=== PATIENT | female | born 1955 | race Caucasian/White ===

== ENCOUNTER 2023-05-29 19:10 | Emergency (ER) | payer MEDICARE, OTHER, SELFPAY ==
[2023-05-29 19:17] VITALS: BP 170/98
[2023-05-29 19:23] VITALS: BMI 33.3
[2023-05-29 20:00] VITALS: BP 144/88; BP 149/96
--- NOTE | 2023-05-29 22:10 | ED.GENMED ---
History of Present Illness
General
Chief Complaint: Breathing Problem
Source: patient
Exam Limitations: clinical condition
Time Seen by Provider: 05/29/23 21:53
Nursing documentation reviewed up to this point in time: agreed with
Travel History
Have you had any contact with someone who has COVID-19?: No
Do you have any symptoms of coronavirus? Fever > 100 degrees, chills, cough, shortness of breath, sore throat, loss of taste or smell, muscle aches, or headache?: No
History of Present Illness
History of Present Illness:
This is a 67 year old female that presents with generalized fatigue and nausea. Pt states that this began around 4pm tonight. She states that she usually takes Phenergan for her nausea. She reports that she is allergic to all other antiemetics.
Patient is on hospice, and she is accompanied by hospice nurse. Patient is on hospice for cardiac issues. She is under the care of [facility]. History is limited at this time as patient does not wish to answer questions.
Past History
Past History
ED Past Medical History: CHF, COPD, HTN, IDDM, NIDDM, Psychiatric (Depression) and Other (DVT/PE, Rheumatoid arthritis, fibromyalgia, colon polyps)
ED Past Surgical History: Cholecystectomy and Orthopedic
Social History
Tobacco: Former smoker
Alcohol: None
Drug: None
Personal: Single
Living: alone
Employment: Not employed
Phy Exam
General Physical Exam
General Presentation: well appearing and no apparent distress
General Skin: warm and dry
General Habitus: normal
General Mental: alert
General Hydration: appears well hydrated
ENT Exam
ENT Exam: EOMI, pharynx normal, neck supple and normocephalic
Eye Exam
Eye Exam: PERRL, cornea clear and conjunctiva normal
Cardiovascular Exam
Cardiovascular Exam: regular rate/rhythm, no edema, no murmur and normal peripheral pulses
Pulmonary Exam
Pulmonary Exam: lungs clear, no respiratory distress, no rales, no crackles, no rhonchi, no stridor, no wheezing and no cough
Gastrointestinal Exam
Gastrointestinal Exam: normal bowel sounds, non tender, soft, no organomegaly, no pulsatile mass and non distended
Neurological Exam
Neurological Exam: alert, oriented x3, no motor deficits and speech normal
Musculoskeletal Exam
Musculoskeletal Exam: full ROM and no edema
Skin Exam
Skin Exam: normal color, warm/dry, no rash and no petechia
Psychiatric Exam
Psychiatric Exam: normal mood/affect
Scores
Heart Failure Risk
Heart Failure Risk Score: Not Applicable
Course
Orders/Labs/Results
Orders:
Orders
05/29/23 19:23
EKG [Electrocardiogram (*1)] Urgent
Reason for Study: Other
Other Reason for Exam: multiple complaints
EKG- Treatment ONCE
05/29/23 22:40
Complete Blood Count/With Diff Urgent
Comprehensive Metabolic Panel Urgent
05/29/23 22:52
Promethazine [Phenergan] 25 mg 0.9% Sodium Chloride 50 ml [Nss] 50 ml IV NOW
05/30/23 02:04
Lorazepam [Ativan] 0.5 mg IV NOW STA
Abnormal Lab Results
05/29/23 05/29/23
22:35 22:40
WBC 13.3 H 10^3/uL
(4.8-10.8)
RBC 5.64 H 10^6/uL
(4.20-5.40)
Hgb 17.6 H g/dL
(12.0-16.0)
Hct 48.3 H %
(37.0-47.0)
MCH 31.2 H pg
(27.0-31.0)
Abs Immat Gran (auto) 0.1 H 10^3/uL
(0-0.05)
Absolute Neuts (auto) 9.6 H 10^3/uL
(1.4-6.5)
Absolute Monos (auto) 1.1 H 10^3/uL
(0.1-0.6)
Lymphocytes % 18.2 L %
(20.5-51.1)
Potassium 3.4 L mmol/L
(3.5-5.1)
Carbon Dioxide 18 L mmol/L
(22-30)
BUN 6 L mg/dl
(7-17)
Creatinine 0.4 L mg/dL
(0.6-1.0)
Glucose 175 H mg/dl
(70-99)
Total Bilirubin 1.4 H mg/dl
(0.2-1.3)
Alkaline Phosphatase 178 H U/L
(38-126)
POC Glucose 169 H mg/dl
(70-99)
05/29/23 22:40
05/29/23 22:40
Vital Signs
Initial and Last Documented VS:
Initial Vital Signs
Temp Pulse Resp Pulse Ox
97.6 F 111 16 97
05/29/23 19:16 05/29/23 19:16 05/29/23 19:16 05/29/23 19:16
Last Documented Vital Signs
Temp Pulse Resp BP Pulse Ox
97.6 F 94 16 156/82 96
05/29/23 19:16 05/29/23 22:24 05/29/23 22:24 05/29/23 22:24 05/29/23 22:24
*Pulse Oximetry
Patient hypoxic: no
*EKG
Interpreted by ED Provider?: Yes
EKG Intrepretation Date: 05/29/23
Interpretation: abnormal
Comparison EKG: no changes
Heart Rate: 106
Rate: tachycardiac
Rhythm: sinus
[place]: normal axis
Interval: long QT
QRS Pattern: wide non-specific
Ischemia: no ischemia
*Apartment Maintenance Technician Interpretation
Rate: normal
Heart Rate: 88
*Critical Care Note
Total Time (30-74mins, 75-104mins- exclusive of procedures): Not Applicable
ED Attending Note
-
Portions of this chart may have been created with voice recognition software.� Occasional wrong word or��sound alike� substitutions may have occurred due to the inherent limitations of voice recognition software.
Discharge Plan
Departure
Patient Disposition: Home (Routine Discharge)
Date of Disposition: 05/30/23
Time of Disposition: 03:40
Patient with high blood pressure during this ER visit?: Yes
Condition: Fair
Discharge Problem:
Nausea & vomiting
Instructions: Nausea and Vomiting, Adult
Prescriptions:
New
promethazine 25 mg suppository
25 mg W[place] Q6H PRN (Reason: nausea and vomiting) Qty: 12 0RF
No Action
pantoprazole 40 MG tablet,delayed release (DR/EC)
40 mg PO DAILY
gabapentin 300 MG capsule
600 mg PO BID@0800,1400
duloxetine 60 MG capsule,delayed release(DR/EC)
60 mg PO HS
Eliquis 5 MG tablet
5 mg PO BID
dicyclomine 20 MG tablet
20 mg PO ACHS
metoprolol succinate 100 MG tablet extended release 24 hr
100 mg PO DAILY
oxycodone 10 MG tablet
10 mg PO Q6
Patient Comments:
11/06/2022: last filled 11/01/22, 28 tabs for 7 days from [facility]
cholecalciferol (vitamin D3) [Vitamin D3] 125 mcg (5,000 unit) Tablet
125 mcg PO DAILY
fluticasone propion-salmeterol [Advair HFA] 115-21 mcg/actuation Hfa Aerosol Inhaler
2 puff INHALATION R BID
amitriptyline 25 MG tablet
25 mg PO HS
insulin degludec [Tresiba FlexTouch U-100] 100 UNIT/ML insulin pen
70 unit SC DAILY
Rx Instructions:
see instructions on discharge
methocarbamol 500 mg tablet
1,000 mg PO TID
prednisone 5 mg tablet
5 mg PO BID
gabapentin 300 mg capsule
900 mg PO HS
albuterol sulfate 90 mcg/actuation Hfa Aerosol Inhaler
2 puff INHALATION R Q6 PRN (Reason: SOB/WHEEZING)
rosuvastatin 40 mg tablet
40 mg PO HS
Creon 36,000-114,000- 180,000 unit capsule,delayed release(DR/EC)
2 cap PO MEALS
Creon 36,000-114,000- 180,000 unit capsule,delayed release(DR/EC)
1 cap PO BID PRN (Reason: SNACK)
Jardiance 25 mg tablet
25 mg PO DAILY
Combivent Respimat 20-100 mcg/actuation mist
1 puff INHALATION R BID
Nurtec ODT 75 mg tablet,disintegrating
75 mg PO DAILY PRN (Reason: MIGRAINE)
Ozempic 1 mg/dose (4 mg/3 mL) pen injector
1 mg SC TH
diltiazem HCl 120 mg capsule,extended release 24hr
120 mg PO HS
insulin aspart U-100 [Novolog FlexPen U-100 Insulin] 300 UNITS/3 ML insulin pen
15 - 20 unit SC AC
Rx Instructions:
please see instructions on discharge
potassium chloride 10 mEq tablet extended release
10 meq PO DAILY 5 Days Qty: 5 0RF
Referrals:
Jorge aSnchez MD [Family Provider] -
Interventions
Interventions:
*Risk Screen - Suicide Last Done: 05/29/23 19:16
*General Assessment Last Done: 05/29/23 19:16
*Neglect/Abuse Screening Last Done: 05/29/23 19:16
ED- Fall Risk Assessment Last Done: 05/29/23 19:23
*ED COVID-19 Vaccine History Last Done: 05/29/23 19:23
*Nursing Disposition Last Done: 05/30/23 03:50
ED- Cardiac Assessment Last Done: 05/29/23 19:23
ED- Pulmonary Assessment Last Done: 05/29/23 19:23
Discharge Date and Time
Discharge Date/Time: 05/30/23 04:08
[2023-05-29 22:24] VITALS: BP 156/82
[2023-05-29 22:36] LABS: Glucose - Point of Care 169 mg/dl (70-99)
[2023-05-29 22:47] LABS: % Basophils 0.7 % (0-2); % Eosinophils 0.7 % (0-6); % Immature Granulocytes 0.4 % (0-0.5); % Lymphocytes 18.2 % (20.5-51.1); % Monocytes 7.9 % (1.7-9.3); % Neutrophils 72.1 % (42.2-75.2); Absolute Basophils 0.1 10^3/uL (0-0.2); Absolute Eosinophils 0.1 10^3/uL (0-0.7); Absolute Immature Granulocytes 0.1 10^3/uL (0-0.05); Absolute Lymphocytes 2.4 10^3/uL (1.2-3.4); Absolute Monocytes 1.1 10^3/uL (0.1-0.6); Absolute Neutrophils 9.6 10^3/uL (1.4-6.5); Hematocrit 48.3 % (37.0-47.0); Hemoglobin 17.6 g/dL (12.0-16.0); Mean Corp Hgb Conc. 36.4 g/dL (33.0-37.0); Mean Corpuscular Hgb 31.2 pg (27.0-31.0); Mean Corpuscular Volume 85.6 fL (81.0-99.0); Mean Platelet Volume 9.2 fL (7.4-10.4); Nucleated Red Blood Cells % 0 %; Platelet Count 354 10^3/uL (130-400); Red Blood Cell Count 5.64 10^6/uL (4.20-5.40); Red Cell Dist. Width 12.7 % (11.5-14.5); White Blood Cell Count 13.3 10^3/uL (4.8-10.8)
[2023-05-29] MEDS: PHENERGAN 51 MG IV (23:03)
[2023-05-29 23:04] LABS: ALT (SGPT) 25 U/L (0-35); AST (SGOT) 31 U/L (14-36); Albumin 4.2 g/dl (3.5-5.0); Alkaline Phosphatase 178 U/L (38-126); Blood Urea Nitrogen 6 mg/dl (7-17); Calcium 9.5 mg/dl (8.4-10.2); Carbon Dioxide 18 mmol/L (22-30); Estimated Creatinine Clearance 93 ml/min; Glucose 175 mg/dl (70-99); Total Bilirubin 1.4 mg/dl (0.2-1.3); Total Protein 7.7 g/dl (6.3-8.2); eGFR > 60.00
[2023-05-29 23:20] LABS: Chloride 106 mmol/L (98-107); Potassium 3.4 mmol/L (3.5-5.1); Sodium 136 mmol/L (135-145)
--- NOTE | 2023-05-29 23:26 | EDRN ---
Pt under the care of [facility] service.
Point of contact: Kasia Weiss RN (RN on-call)
telephone
[2023-05-30] MEDS: ATIVAN 0.5 MG IV (02:19)
== END 2023-05-30 04:08 | disposition home or self-care (01) ==
LOC: EMR 19:10
PROVIDERS: EMERGENCY PHYSICIAN Student in an Organized Health Care Education/Training Program; FAMILY PHYSICIAN Internal Medicine
DX: R11.2 Nausea with vomiting, unspecified (principal); I11.0 Hypertensive heart disease with heart failure; I50.9 Heart failure, unspecified; F32.A Depression, unspecified; J44.9 Chronic obstructive pulmonary disease, unspecified; M06.9 Rheumatoid arthritis, unspecified; M79.7 Fibromyalgia; E11.9 Type 2 diabetes mellitus without complications; Z51.5 Encounter for palliative care; Z86.718 Personal history of other venous thrombosis and embolism; Z87.19 Personal history of other diseases of the digestive system; Z87.891 Personal history of nicotine dependence; Z90.49 Acquired absence of other specified parts of digestive tract
CPT/HCPCS: 99284; 96374; 80053; 82962; 85025; 93005

== ENCOUNTER 2023-08-03 14:56 | Emergency (ER) | payer MEDICARE, OTHER, SELFPAY ==
[2023-08-03 15:17] VITALS: BP 188/106
[2023-08-03 15:42] VITALS: BMI 35.9
[2023-08-03 16:15] LABS: Glucose - Point of Care 128 mg/dl (70-99)
[2023-08-03] MEDS: NSS 1000 IV (16:59)
[2023-08-03 17:00] VITALS: BP 168/87
[2023-08-03] MEDS: ATIVAN 0.5 MG IV (17:03)
[2023-08-03] MEDS: LOPRESSOR 5 MG IV (17:03)
[2023-08-03 17:31] LABS: % Basophils 0.7 % (0-2); % Eosinophils 1.6 % (0-6); % Immature Granulocytes 0.4 % (0-0.5); % Lymphocytes 16.2 % (20.5-51.1); % Monocytes 6.5 % (1.7-9.3); % Neutrophils 74.6 % (42.2-75.2); Absolute Basophils 0.1 10^3/uL (0-0.2); Absolute Eosinophils 0.2 10^3/uL (0-0.7); Absolute Immature Granulocytes 0.1 10^3/uL (0-0.05); Absolute Lymphocytes 2.2 10^3/uL (1.2-3.4); Absolute Monocytes 0.9 10^3/uL (0.1-0.6); Absolute Neutrophils 10.1 10^3/uL (1.4-6.5); Hematocrit 50.1 % (37.0-47.0); Mean Corp Hgb Conc. 35.9 g/dL (33.0-37.0); Mean Corpuscular Hgb 31.3 pg (27.0-31.0); Mean Platelet Volume 9.3 fL (7.4-10.4); Nucleated Red Blood Cells % 0 %; Platelet Count 306 10^3/uL (130-400); Red Blood Cell Count 5.76 10^6/uL (4.20-5.40); Red Cell Dist. Width 12.8 % (11.5-14.5); White Blood Cell Count 13.6 10^3/uL (4.8-10.8)
[2023-08-03] MEDS: COMPAZINE 10 MG IV (17:41)
[2023-08-03 17:45] LABS: ALT (SGPT) 25 U/L (0-35); AST (SGOT) 30 U/L (14-36); Albumin 4.4 g/dl (3.5-5.0); Alkaline Phosphatase 158 U/L (38-126); Blood Urea Nitrogen 10 mg/dl (7-17); Calcium 9.7 mg/dl (8.4-10.2); Carbon Dioxide 19 mmol/L (22-30); Chloride 106 mmol/L (98-107); Estimated Creatinine Clearance 97 ml/min; Glucose 124 mg/dl (70-99); Lipase 65 U/L (23-300); Potassium 3.7 mmol/L (3.5-5.1); Sodium 136 mmol/L (135-145); Total Bilirubin 1.1 mg/dl (0.2-1.3); eGFR > 60.00
[2023-08-03 17:55] LABS: Troponin I < 0.012 ng/ml
[2023-08-03 19:28] VITALS: BP 105/88
[2023-08-03 19:38] LABS: Urine Albumin Trace (Neg - Trace); Urine Bilirubin Negative (Negative); Urine Character Slightly Cloudy (Clear); Urine Color Straw; Urine Glucose 3+ (Negative); Urine Ketone 3+ (Negative); Urine Leukocyte 2+ (Negative); Urine Nitrite Negative (Negative); Urine Occult Blood Negative (Negative); Urine Specific Gravity 1.005 (<1.030); Urine Urobilinogen Negative (Neg - 1+)
[2023-08-03 19:53] LABS: Urine Squamous Cell >30 /LPF (Few)
[2023-08-03 19:54] LABS: Urine Bacteria Few (Negative)
[2023-08-03 19:55] LABS: Urine White Cell 26-30 /HPF (0-5)
[2023-08-03 20:00] VITALS: BP 116/75
--- NOTE | 2023-08-03 20:55 | ED.GENMED ---
History of Present Illness
<Echo Multani NP - Last Filed: 08/03/23 23:02>
General
Chief Complaint: Cardiac Symptoms
Source: patient
Exam Limitations: none
Time Seen by Provider: 08/03/23 15:43
Nursing documentation reviewed up to this point in time: agreed with
Travel History
Have you had any contact with someone who has COVID-19?: No
Do you have any symptoms of coronavirus? Fever > 100 degrees, chills, cough, shortness of breath, sore throat, loss of taste or smell, muscle aches, or headache?: No
History of Present Illness
History of Present Illness:
Patient to ED with complaint of chest pain, weakness, chills, perfuse sweating. . States last PM her BP started running high, heart rate low. States she has had similar symptoms in the past when she was diagnosed with PE. She is currently on
eliquis but states she ran out of med for a period of 12 weeks. Restarted med approx 1 week ago. She reports feeling SOB and has chest pain that radiates thru to her back. SInce arriving to ED she reports abdominal pain, n/v. SHe is accompanied
by her transition of care specialist
Past History
<Echo Multani NP - Last Filed: 08/03/23 23:02>
Past History
ED Past Medical History: CHF, COPD, HTN, IDDM, NIDDM, Psychiatric (Depression) and Other (DVT/PE, Rheumatoid arthritis, fibromyalgia, colon polyps)
ED Past Surgical History: Cholecystectomy and Orthopedic
Social History
Tobacco: Former smoker
Alcohol: None
Drug: None
Personal: Single
Living: alone
Employment: Not employed
Review of Systems
<Echo Multani NP - Last Filed: 08/03/23 23:02>
Review of Systems
Allergies reviewed?: Yes
All Other Systems: ROS reviewed and negative except as documented in HPI and ROS
Constitutional: Reports fatigue and chills
EENT: Reports no symptoms
Respiratory: Reports no symptoms
Cardiac: Reports chest pain and diaphoresis
ABD/GI: Reports abdominal pain and nausea
: Reports no symptoms
Musculoskeletal: Reports no symptoms
Skin: Reports no symptoms
Neurological: Reports weakness
Psychiatric: Reports no symptoms
Phy Exam
<Echo Multani GALLEY HAND - Last Filed: 08/03/23 23:02>
General Physical Exam
General Presentation: moderate distress
General age: appears older than age
General Skin: diaphoretic
General Habitus: normal
General Mental: alert
Cardiovascular Exam
Cardiovascular Exam: regular rate/rhythm and no edema
Pulmonary Exam
Pulmonary Exam: no respiratory distress and decreased breath sounds
Gastrointestinal Exam
Gastrointestinal Exam: normal bowel sounds, soft, no organomegaly, non distended and no cva tenderness
Musculoskeletal Exam
Musculoskeletal Exam: full ROM and neuro vasc intact
Skin Exam
Skin Exam: normal color, warm/dry and no rash
Psychiatric Exam
Psychiatric Exam: anxious
Course
<Echo Multani GALLEY HAND - Last Filed: 08/03/23 23:02>
Orders/Labs/Results
Orders:
Orders
08/03/23 14:58
ECG [Electrocardiogram (*1)] Urgent
Reason for Study: Chest Pain
EKG- Treatment ONCE
08/03/23 15:51
Lorazepam [Ativan] 0.5 mg IV NOW STA
08/03/23 15:52
CT Pe/abd/pel W Urgent
Reason For Exam: pain, SOB, PE hx, off eliquis x 2 weeks.
0.9% Sodium Chloride 1000 ml [Nss] 1,000 ml IV BOLUS
08/03/23 16:18
Metoprolol [Lopressor] 5 mg IV NOW STA
08/03/23 16:50
Ondansetron Injectable [Zofran] 4 mg IV NOW STA
08/03/23 17:23
Complete Blood Count/With Diff Urgent
Comprehensive Metabolic Panel Urgent
Lipase Urgent
Troponin I Urgent
08/03/23 17:29
Prochlorperazine [Compazine] 10 mg IV NOW STA
08/03/23 19:25
Urinalysis Reflex To Culture Urgent
Date Specimen was Collected: 08/03/23
Time Specimen was Collected: 15:55
Urine Microscopic Reflex Cult Urgent
Urine Culture Urgent
TIFFANIE Source: U
Specimen Description:
Date Specimen was Collected: 08/03/23
Time Specimen was Collected: 15:55
Abnormal Lab Results
08/03/23 08/03/23 08/03/23
16:14 17:23 19:25
WBC 13.6 H 10^3/uL
(4.8-10.8)
RBC 5.76 H 10^6/uL
(4.20-5.40)
Hgb 18.0 H g/dL
(12.0-16.0)
Hct 50.1 H %
(37.0-47.0)
MCH 31.3 H pg
(27.0-31.0)
Abs Immat Gran (auto) 0.1 H 10^3/uL
(0-0.05)
Absolute Neuts (auto) 10.1 H 10^3/uL
(1.4-6.5)
Absolute Monos (auto) 0.9 H 10^3/uL
(0.1-0.6)
Lymphocytes % 16.2 L %
(20.5-51.1)
Carbon Dioxide 19 L mmol/L
(22-30)
Glucose 124 H mg/dl
(70-99)
Alkaline Phosphatase 158 H U/L
(38-126)
Urine Ketones 3+ A
(Negative)
Leukocyte Esterase Rfl 2+ A
(Negative)
Urine RBC 3-6 A /HPF
(0-2)
Urine WBC (Reflex) 26-30 A /HPF
(0-5)
Urine Bacteria (Reflex) Few A
(Negative)
Urine Glucose 3+ A
(Negative)
POC Glucose 128 H mg/dl
(70-99)
08/03/23 17:23
08/03/23 17:23
Vital Signs
Initial and Last Documented VS:
Initial Vital Signs
Temp Pulse Resp BP Pulse Ox
97.6 F 88 18 188/106 99
08/03/23 15:17 08/03/23 15:17 08/03/23 15:17 08/03/23 15:17 08/03/23 15:17
Last Documented Vital Signs
Temp Pulse Resp BP Pulse Ox
97.6 F 82 16 127/83 99
08/03/23 15:17 08/03/23 22:00 08/03/23 22:00 08/03/23 21:57 08/03/23 17:30
<Han Brady MD - Last Filed: 08/03/23 23:21>
Orders/Labs/Results
Orders:
Orders
08/03/23 14:58
ECG [Electrocardiogram (*1)] Urgent
Reason for Study: Chest Pain
EKG- Treatment ONCE
08/03/23 15:51
Lorazepam [Ativan] 0.5 mg IV NOW STA
08/03/23 15:52
CT Pe/abd/pel W Urgent
Reason For Exam: pain, SOB, PE hx, off eliquis x 2 weeks.
0.9% Sodium Chloride 1000 ml [Nss] 1,000 ml IV BOLUS
08/03/23 16:18
Metoprolol [Lopressor] 5 mg IV NOW STA
08/03/23 16:50
Ondansetron Injectable [Zofran] 4 mg IV NOW STA
08/03/23 17:23
Complete Blood Count/With Diff Urgent
Comprehensive Metabolic Panel Urgent
Lipase Urgent
Troponin I Urgent
08/03/23 17:29
Prochlorperazine [Compazine] 10 mg IV NOW STA
08/03/23 19:25
Urinalysis Reflex To Culture Urgent
Date Specimen was Collected: 08/03/23
Time Specimen was Collected: 15:55
Urine Microscopic Reflex Cult Urgent
Urine Culture Urgent
TIFFANIE Source: U
Specimen Description:
Date Specimen was Collected: 08/03/23
Time Specimen was Collected: 15:55
Abnormal Lab Results
08/03/23 08/03/23 08/03/23
16:14 17:23 19:25
WBC 13.6 H 10^3/uL
(4.8-10.8)
RBC 5.76 H 10^6/uL
(4.20-5.40)
Hgb 18.0 H g/dL
(12.0-16.0)
Hct 50.1 H %
(37.0-47.0)
MCH 31.3 H pg
(27.0-31.0)
Abs Immat Gran (auto) 0.1 H 10^3/uL
(0-0.05)
Absolute Neuts (auto) 10.1 H 10^3/uL
(1.4-6.5)
Absolute Monos (auto) 0.9 H 10^3/uL
(0.1-0.6)
Lymphocytes % 16.2 L %
(20.5-51.1)
Carbon Dioxide 19 L mmol/L
(22-30)
Glucose 124 H mg/dl
(70-99)
Alkaline Phosphatase 158 H U/L
(38-126)
Urine Ketones 3+ A
(Negative)
Leukocyte Esterase Rfl 2+ A
(Negative)
Urine RBC 3-6 A /HPF
(0-2)
Urine WBC (Reflex) 26-30 A /HPF
(0-5)
Urine Bacteria (Reflex) Few A
(Negative)
Urine Glucose 3+ A
(Negative)
POC Glucose 128 H mg/dl
(70-99)
08/03/23 17:23
08/03/23 17:23
Vital Signs
Initial and Last Documented VS:
Initial Vital Signs
Temp Pulse Resp BP Pulse Ox
97.6 F 88 18 188/106 99
08/03/23 15:17 08/03/23 15:17 08/03/23 15:17 08/03/23 15:17 08/03/23 15:17
Last Documented Vital Signs
Temp Pulse Resp BP Pulse Ox
97.6 F 82 16 127/83 99
08/03/23 15:17 08/03/23 22:00 08/03/23 22:00 08/03/23 21:57 08/03/23 17:30
<Echo Multani NP - Last Filed: 08/03/23 23:02>
*Radiology
Radiology exam reviewed: radiology read reviewed
*Pulse Oximetry
Patient hypoxic: no
*Critical Care Note
Total Time (30-74mins, 75-104mins- exclusive of procedures): Not Applicable
<Echo Multani NP - Last Filed: 08/03/23 23:02>
Update Note
Update Note:
Patient reports passing large amt of stool after CT. Declined rectal exam. She is improved after Ativan. VSS. Case discussed with dr. Brady who also evaluated this patient. No concerning findings on exam today. WIll discharge home. Recommend
close follow up with provider,. She was given referral to outpatient clinic.
ED Attending Note
<Echo Multani NP - Last Filed: 08/03/23 23:02>
-
Portions of this chart may have been created with voice recognition software.� Occasional wrong word or��sound alike� substitutions may have occurred due to the inherent limitations of voice recognition software.
<Han Brady MD - Last Filed: 08/03/23 23:21>
ED Attending Note
Patient seen and examined by attending physician: Yes
ED Attending Note:
Patient presents to ED secondary to fluctuating blood pressure and heart rate when checked at home over the past 2 days. Her systolic blood pressure has been between 180 and 130. Her heart rate has been between 50 and 90. Patient also reports
intermittent shortness of breath, as well as abdominal pain, which incidentally has been ongoing for 'years'. Patient in addition, also has had fluctuating blood pressure and heart rate in the past. Interestingly, patient states that she had been
on hospice service for some time, secondary to her 'heart and abdominal condition', as recommended by her primary care physician. Recently however, patient states that she was discharged by hospital service because she is 'healthy'. Due to herself
being on the hospital service, some of the medications had been discontinued and she also has run out of her medications, including Eliquis, which she was taking secondary to previous pulmonary embolism. Patient was restarted on Eliquis 1 week ago.
Denies vomiting or diarrhea. Denies fever or chills. Denies coughing. Denies recent illness. Denies recent travel.
Physical Exam
General: no apparent distress, not acutely ill. afebrile
Head: nc/at. eomi
Neck: supple. normal range of motion.
Heart: s1/s2 regular rate and rhythm, no murmur. equal radial pulses.
Lungs: no acute respiratory distress. clear bilaterally
Abdomen: normal bowel sounds. not tender.
Neuro: alert and oriented. no focal neurological deficits
Skin: no rash
Psychiatric: appears agitated and anxious.
Extremities: no edema. no calf tenderness.
Patient with multiple complaints, which all appear to be chronic in nature. Unfortunately, patient currently does not have primary care physician to follow-up with as an outpatient. As such, advised and recommended patient follow-up with
outpatient medical clinic, i.e. [facility] or medical clinic run by [facility], until new primary care physician is established. However, patient adamant about not wanting to follow-up with the clinic, for which reasons she
would not share at this time. Patient states that she will find another family physician by herself. Otherwise, patient is afebrile, hemodynamically stable, and is without any acute distress. Fluctuating blood pressure as well as heart rate
within acceptable range, and does not warrant any further evaluation/treatment at this time.
Discharge Plan
Departure
Patient Disposition: Home (Routine Discharge)
Date of Disposition: 08/03/23
Time of Disposition: 21:44
Patient with high blood pressure during this ER visit?: No
Condition: Good
Covid-19: Not Applicable
Discharge Problem:
Weakness
Instructions: Weakness ED, Fatigue ED, BLOOD PRESSURE
Prescriptions:
No Action
pantoprazole 40 MG tablet,delayed release (DR/EC)
40 mg PO DAILY
gabapentin 300 MG capsule
600 mg PO BID@0800,1400
duloxetine 60 MG capsule,delayed release(DR/EC)
60 mg PO HS
Eliquis 5 MG tablet
5 mg PO BID
dicyclomine 20 MG tablet
20 mg PO ACHS
metoprolol succinate 100 MG tablet extended release 24 hr
100 mg PO DAILY
oxycodone 10 MG tablet
10 mg PO Q6
Patient Comments:
11/06/2022: last filled 11/01/22, 28 tabs for 7 days from [facility]
cholecalciferol (vitamin D3) [Vitamin D3] 125 mcg (5,000 unit) Tablet
125 mcg PO DAILY
fluticasone propion-salmeterol [Advair HFA] 115-21 mcg/actuation Hfa Aerosol Inhaler
2 puff INHALATION R BID
amitriptyline 25 MG tablet
25 mg PO HS
insulin degludec [Tresiba FlexTouch U-100] 100 UNIT/ML insulin pen
70 unit SC DAILY
Rx Instructions:
see instructions on discharge
methocarbamol 500 mg tablet
1,000 mg PO TID
prednisone 5 mg tablet
5 mg PO BID
gabapentin 300 mg capsule
900 mg PO HS
albuterol sulfate 90 mcg/actuation Hfa Aerosol Inhaler
2 puff INHALATION R Q6 PRN (Reason: SOB/WHEEZING)
rosuvastatin 40 mg tablet
40 mg PO HS
Creon 36,000-114,000- 180,000 unit capsule,delayed release(DR/EC)
2 cap PO MEALS
Creon 36,000-114,000- 180,000 unit capsule,delayed release(DR/EC)
1 cap PO BID PRN (Reason: SNACK)
Jardiance 25 mg tablet
25 mg PO DAILY
Combivent Respimat 20-100 mcg/actuation mist
1 puff INHALATION R BID
Nurtec ODT 75 mg tablet,disintegrating
75 mg PO DAILY PRN (Reason: MIGRAINE)
Ozempic 1 mg/dose (4 mg/3 mL) pen injector
1 mg SC TH
diltiazem HCl 120 mg capsule,extended release 24hr
120 mg PO HS
insulin aspart U-100 [Novolog FlexPen U-100 Insulin] 300 UNITS/3 ML insulin pen
15 - 20 unit SC AC
Rx Instructions:
please see instructions on discharge
potassium chloride 10 mEq tablet extended release
10 meq PO DAILY 5 Days Qty: 5 0RF
promethazine 25 mg suppository
25 mg [place] Q6H PRN (Reason: nausea and vomiting) Qty: 12 0RF
Referrals:
[facility] [Outside] - Call in 1-3 days for appt
Luis Alfredo Huang, [Family Provider] -
Interventions
Interventions:
*Risk Screen - Suicide Last Done: 08/03/23 16:11
*General Assessment Last Done: 08/03/23 16:11
*Neglect/Abuse Screening Last Done: 08/03/23 16:11
ED- Fall Risk Assessment Last Done: 08/03/23 15:51
*ED COVID-19 Vaccine History Last Done: 08/03/23 15:51
*Nursing Disposition Last Done: 08/03/23 22:17
ED- Pulmonary Assessment Last Done: 08/03/23 15:51
ED- Cardiac Assessment Last Done: 08/03/23 15:51
Discharge Date and Time
Discharge Date/Time: 08/03/23 22:18
Print Language: [email or web address]
[2023-08-03 21:57] VITALS: BP 127/83
== END 2023-08-03 22:18 | disposition home or self-care (01) ==
LOC: EMR 14:56
PROVIDERS: Nurse Practitioner; EMERGENCY PHYSICIAN Emergency Medicine; FAMILY PHYSICIAN Internal Medicine
DX: R53.1 Weakness (principal); R06.02 Shortness of breath; R10.9 Unspecified abdominal pain; Z87.891 Personal history of nicotine dependence; Z86.711 Personal history of pulmonary embolism
CPT/HCPCS: 99285; 96374; 96375 ×2; 96361; 71275; 74177; 80053; 81003; 81015; 82962; 83690; 84484; 85025; 87086; 93005; Q9967